=== PATIENT | female | born 1945 | race Caucasian/White ===

== ENCOUNTER 2016-10-20 13:50 | Emergency (ER) | payer OTHER ==
[~2016-10-20] VITALS: Ht 160 cm; Wt 72.7 kg
[~2016-10-20 13:50] MED LIST: AMLO2.5T PO; ATOR-24 PO; GLC/500 PO; GLIP2.5T11 PO; HYDR25TA4 PO; LOSA100T65 PO; TRIA0.1C20 TOP
[2016-10-20 13:55] VITALS: TEMP 37; Ht 160 cm; Wt 72.7 kg
--- NOTE | 2016-10-20 15:35 | EMERGENCY ROOM VISIT NOTE ---
History Report prepared by Jerald: Haris Hayden Under the Supervision of: Dr. Michael Lopez M.D. First contact with patient: 15:16 Chief Complaint: CHEST PAIN Stated Complaint: CHEST PAIN Nursing Triage Summary: Triage note: Pt reports left chest pain x 1 week. pt reports she was seen at dr cavanaugh office and sent to ed for further eval. History of Present Illness The patient is a 71 year old female who presents to the Emergency Room with complaints of constant left sided chest pain beginning three days prior to arrival. She currently rates her discomfort as a 4-5/10 in severity. The patient notes her pain will worsen with lifting a bin of clothes. She denies exertion or taking a deep breath making her pain worse. The patient denies anything that makes her discomfort better. She notes a history of having an ongoing left shoulder problem. The patient states she was sent by Dr. Lee's office for a cardiac work up. She denies having symptoms like this in the past. The patient denies known heart problems but states she has a history of hypertension. She denies shortness of breath, rash or didier on the chest, recent long travel, history of blood clots in her legs or lungs, and a family history of blood clots. 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 A total of 10 systems reviewed and were otherwise negative. Past Medical & Surgical Medical Problems: (1) HTN (hypertension) (2) Hypercholesteremia Family History Cancer Diabetes mellitus FH: heart disease Hypertension Social History Smoking Status: Never Smoker Marital Status: single Housing Status: lives with significant other Occupation Status: retired Current/Historical Medications Scheduled Amlodipine (Norvasc), 2.5 MG PO QPM Aspirin (Aspirin Ec), 81 MG PO QPM Atorvastatin (Lipitor), 40 MG PO QPM Calcium Carbonate-Vitamin D (Calcium + D3 600-200 mg-Unit), 1 TAB PO QPM Glipizide (Glipizide Er), 1 TAB PO DAILY Ozhcoktvpxu-Fvueikrzwmf-Ba Cho (Glucosamine Chondroitin &), 1 TAB PO QPM Hydrochlorothiazide (Hctz), 25 MG PO QPM Losartan Potassium (Cozaar), 100 MG PO QPM Metformin Hcl (Glucophage), 500 MG PO QAM Multiple Vitamins W/ Minerals (Preservision Areds), 1 CAP PO QPM Allergies Coded Allergies: Iodinated Diagnostic Agents (Verified Allergy, Severe, TIGHT THROAT, FELT HOT, 10/20/16) Penicillins (Verified Allergy, Severe, RASH, 10/20/16) Physical Exam Vital Signs Date Time Temp Pulse Resp B/P Pulse Ox O2 Delivery O2 Flow Rate FiO2 10/20/16 17:21 68 16 135/71 94 Room Air 10/20/16 16:24 70 10/20/16 16:09 70 20 155/80 92 Room Air 10/20/16 16:01 92 Room Air 10/20/16 13:55 37.0 79 18 162/82 94 Room Air Physical Exam GENERAL: Patient is in no acute distress. HEENT: No acute trauma, normocephalic atraumatic, mucous membranes moist, no nasal congestion, no scleral icterus. NECK: No stridor, no adenopathy, no meningismus, trachea is midline. LUNGS: Clear to auscultation bilaterally, no wheeze, no rhonchi, breath sounds equal. HEART: 2/6 systolic murmur with a regular rate and rhythm. CHEST: Nontender chest wall. ABDOMEN: Soft, nontender, bowel sounds positive, no hernias, no peritonitis. EXTREMITIES: No cyanosis or edema, full range of motion of all the joints without pain or difficulty, no signs for acute trauma. NEUROLOGIC: Oriented x 3, no acute motor or sensory deficits, no focal weakness. SKIN: No rash, no jaundice, no diaphoresis. Medical Decision & Procedures ER Provider Diagnostic Interpretation: X-ray results as stated below per interpretation by me and the radiologist: SINGLE VIEW CHEST CLINICAL HISTORY: Atypical chest pain. FINDINGS: An AP, portable, upright chest radiograph is compared to study dated 01/15/2016. The examination is degraded by portable technique and patient rotation. The cardiomediastinal silhouette is unremarkable. The lungs and pleural spaces are clear. No pneumothorax is seen. The skeletal structures are osteopenic. The bony thorax is grossly intact. Calcific tendinopathy is noted in the left shoulder. IMPRESSION: No active disease in the chest. Electronically signed by: Michael Meyer M.D. 10/20/2016 3:42 PM Dictated Date/Time: 10/20/2016 3:41 PM Laboratory Results 10/20/16 16:00 10/20/16 16:00 Test 10/20/16 16:00 10/20/16 16:12 Red Blood Count 4.49 M/uL (4.2-5.4) Mean Corpuscular Volume 89.1 fL (80-100) Mean Corpuscular Hemoglobin 30.3 pg (25-34) Mean Corpuscular Hemoglobin Concent 34.0 g/dl (32-36) RDW Standard Deviation 45.3 fL (36.4-46.3) RDW Coefficient of Variation 13.9 % (11.5-14.5) Mean Platelet Volume 10.1 fL (7.4-10.4) Prothrombin Time 10.9 SECONDS (9.0-12.0) Prothromb Time International Ratio 1.0 (0.9-1.1) Activated Partial Thromboplast Time 27.1 SECONDS (21.0-31.0) Partial Thromboplastin Ratio 1.0 Anion Gap 8.0 mmol/L (3-11) Est Creatinine Clear Calc Drug Dose 58.3 ml/min Estimated GFR () 78.8 Estimated GFR (Non- 68.0 BUN/Creatinine Ratio 19.9 (10-20) Calcium Level 9.5 mg/dl (8.5-10.1) Total Bilirubin 0.5 mg/dl (0.2-1) Aspartate Amino Transf (AST/SGOT) 14 U/L (15-37) Alanine Aminotransferase (ALT/SGPT) 34 U/L (12-78) Alkaline Phosphatase 75 U/L (45-117) Troponin I < 0.015 ng/ml (0-0.045) Total Protein 7.6 gm/dl (6.4-8.2) Albumin 4.4 gm/dl (3.4-5.0) Globulin 3.2 gm/dl (2.5-4.0) Albumin/Globulin Ratio 1.4 (0.9-2) Bedside D-Dimer 221 ng/mlFEU (0-450) Laboratory results reviewed by me. ECG Indication: chest pain Rate (beats per minute): 68 Rhythm: normal sinus Findings: no acute ischemic change, no ectopy, other (nonspecific T-wave changes diffusely) ED Course 1518: The patient was evaluated in room C8. A complete history and physical exam was performed. 1727: Reevaluated the patient. Discussed results and discharge instructions: She verbalized understanding and agreement. The patient is ready for discharge. Medical Decision The differential diagnoses include but are not limited to: musculoskeletal pain , aortic dissection, PE, pneumonia, pneumothorax, herpes zoster, anemia, ND. There is no leukocytosis or concerning anemia. No significant electrolyte abnormality, kidney failure or hepatitis. There is no coagulopathy. EKG shows a normal sinus rhythm, there is no acute ischemia. Cardiac enzyme testing 1 is not suggestive of acute cardiac injury. Chest x-ray shows no pneumonia, mediastinal widening or pneumothorax. D-dimer testing is negative. With a negative d-dimer and my low suspicion for PE, I will stop the workup for this diagnosis. The patient presents with some left sided chest pain. The pain is not exertional. The pain is likely musculoskeletal. Her workup here is benign, the patient is being reassured. She can return if worsening. She was told to be sure to watch for any shingles like rash. Impression Primary Impression: Left sided chest pain Scribe Attestation The scribe's documentation has been prepared under my direction and personally reviewed by me in its entirety. I confirm that the note above accurately reflects all work, treatment, procedures, and medical decision making performed by me. Departure Information Dispostion Home / Self-Care Referrals Didier Lee M.D. (PCP) Forms HOME CARE DOCUMENTATION FORM, IMPORTANT VISIT INFORMATION Patient Instructions A Signature Page, My [facility] [employer] Additional Instructions heat may help otc pain meds watch for a rash as we discussed return if worsening follow with tico white for a recheck all lab testing today was ok
[2016-10-20] MEDS ORDERED: CALC-388 PO (15:38)
[2016-10-20] MEDS ORDERED: GLUCTAB32 PO (15:38)
[2016-10-20] MEDS ORDERED: ASPI81TA28 PO (15:38)
[2016-10-20] MEDS ORDERED: MULTCAP33 PO (15:38)
--- NOTE | 2016-10-20 15:44 | DIAGNOSTIC IMAGING REPORT ---
SINGLE VIEW CHEST CLINICAL HISTORY: Atypical chest pain. FINDINGS: An AP, portable, upright chest radiograph is compared to study dated 01/15/2016. The examination is degraded by portable technique and patient rotation. The cardiomediastinal silhouette is unremarkable. The lungs and pleural spaces are clear. No pneumothorax is seen. The skeletal structures are osteopenic. The bony thorax is grossly intact. Calcific tendinopathy is noted in the left shoulder. IMPRESSION: No active disease in the chest. Electronically signed by: Michael Meyer M.D. 10/20/2016 3:42 PM Dictated Date/Time: 10/20/2016 3:41 PM
[2016-10-20 16:01] VITALS: O2SAT 92
[2016-10-20 16:24] LABS: MEAN CELL VOLUME 89.1 fL (80-100); MEAN CORPUSCULAR HEMOGLOBIN 30.3 pg (25-34); MEAN PLATELET VOLUME 10.1 fL (7.4-10.4); PLATELET COUNT 245 K/uL (130-400); RED BLOOD COUNT 4.49 M/uL (4.2-5.4); WHITE BLOOD COUNT 8.73 K/uL (4.8-10.8)
[2016-10-20 16:27] LABS: PROTHROMBIN TIME (PATIENT) 10.9 SECONDS (9.0-12.0)
[2016-10-20 16:34] LABS: ALT/SGPT 34 U/L (12-78); AST/SGOT 14 U/L (15-37); BLOOD UREA NITROGEN 17 mg/dl (7-18); BUN/CREATININE RATIO 19.9 (10-20); CALCIUM 9.5 mg/dl (8.5-10.1); CARBON DIOXIDE 30 mmol/L (21-32); CHLORIDE 103 mmol/L (98-107); CREATININE 0.87 mg/dl (0.60-1.20); GLUCOSE 128 mg/dl (70-99); POTASSIUM 3.9 mmol/L (3.5-5.1); SODIUM 141 mmol/L (136-145)
[2016-10-20 16:38] LABS: ALB/GLOB RATIO 1.4 (0.9-2); ALKALINE PHOSPHATASE 75 U/L (45-117)
[2016-10-20 17:21] VITALS: BP 135/71; PULSE 68; O2SAT 94
== END 2016-10-20 17:28 | disposition home or self-care (01) ==
LOC: C.EDB 13:51 → C.EDC 17:28
DX: R07.9 Chest pain, unspecified (principal); I10 Essential (primary) hypertension; E78.00 Pure hypercholesterolemia, unspecified; Z83.3 Family history of diabetes mellitus; Z82.49 Family history of ischemic heart disease and other diseases of the circulatory system; Z79.82 Long term (current) use of aspirin; Z79.899 Other long term (current) drug therapy

== ENCOUNTER 2017-01-05 00:33 | Emergency (ER) | payer OTHER ==
[~2017-01-05] VITALS: Ht 160 cm; Wt 74.9 kg
[~2017-01-05 00:33] MED LIST changes: +ASPI81TA28 PO; +CALC-388 PO; +GLUCTAB32 PO; +MULTCAP33 PO; -TRIA0.1C20 TOP
[2017-01-05 00:40] VITALS: TEMP 36.9; Ht 160 cm; Wt 74.9 kg
[2017-01-05] MEDS ORDERED: SODIUM CHLORIDE 0.9% 1000ML 1,000 ML IV STA (01:03)
[2017-01-05] MEDS ORDERED: KETOROLAC TROMETHAMINE 30 MG/ML VIAL IV STA (01:03)
[2017-01-05 01:28] LABS: HEMATOCRIT 39.8 % (37-47); MEAN CELL VOLUME 86.9 fL (80-100); MEAN CORPUSCULAR HEMOGLOBIN 29.9 pg (25-34); MEAN CORPUSCULAR HGB CONC 34.4 g/dl (32-36); MEAN PLATELET VOLUME 9.6 fL (7.4-10.4); PLATELET COUNT 262 K/uL (130-400); RED BLOOD COUNT 4.58 M/uL (4.2-5.4)
[2017-01-05 01:47] LABS: BUN/CREATININE RATIO 20.6 (10-20); CALCIUM 9.2 mg/dl (8.5-10.1); CREATININE 0.83 mg/dl (0.60-1.20); MAGNESIUM 2.1 mg/dl (1.8-2.4); POTASSIUM 3.6 mmol/L (3.5-5.1)
[2017-01-05 01:57] LABS: CKMB/CK RATIO 0.7 (0-3.0); THYROID STIMULATING HORMONE 3.07 uIu/ml (0.300-4.500)
[2017-01-05 02:17] LABS: BASO % 0.4 %; BASO ABS # 0.04 K/uL (0-0.2); COMPLETE YES; EOS % 2.8 %; HYPOSEGMENTED POLYS OCCASIONAL; IG% 0.3 %; MONO % 8.6 %; NEUT % 59.9 %
[2017-01-05 03:30] VITALS: BP 115/62; PULSE 74; O2SAT 94
--- NOTE | 2017-01-05 03:30 | EMERGENCY ROOM VISIT NOTE ---
History Report prepared by Annikaibnayan: Kris Gillespie Under the Supervision of: Dr. Gemma Stone M.D. First contact with patient: 00:45 Chief Complaint: FACIAL PAIN/INJURY Stated Complaint: PAIN RT SIDE OF JAW,BP UP SLIGHTLY 151/85 History of Present Illness The patient is a 71 year old female who presents to the Emergency Room with complaints of worsening right jaw pain beginning two days ago. Her pain is worsened with closing her jaw. She denies any neurologic symptoms, dental pain, known fevers, heart palpitations, or chest pain. The patient notes that she checked her blood pressure tonight and found it to be elevated. She describes her pain as a feeling of "pressure". She notes that she had an episode of lightheadedness yesterday, but is unsure if this is relevant to her symptoms. Source of History: patient Onset: two days ago Position: jaw (right) Quality: pressure Timing: worsening Modifying Factors (Worsening): other (closing her jaw) Associated Symptoms: No chest pain, No fevers Note: The patient denies any dental pain, heart palpitations, or neurologic symptoms. Review of Systems See HPI for pertinent positives & negatives. A total of 10 systems reviewed and were otherwise negative. Past Medical & Surgical Medical Problems: (1) HTN (hypertension) (2) Hypercholesteremia Family History Cancer Diabetes mellitus FH: heart disease Hypertension Social History Smoking Status: Never Smoker Marital Status: single Housing Status: lives with significant other Occupation Status: retired Current/Historical Medications Scheduled Amlodipine (Norvasc), 2.5 MG PO QPM Aspirin (Aspirin Ec), 81 MG PO QPM Atorvastatin (Lipitor), 40 MG PO QPM Calcium Carbonate-Vitamin D (Calcium + D3 600-200 mg-Unit), 1 TAB PO QPM Glipizide (Glipizide Er), 2.5 MG PO DAILY Ctkjzlzavsa-Ozhsvvdckku-Pm Cho (Glucosamine Chondroitin &), 1 TAB PO QPM Hydrochlorothiazide (Hctz), 25 MG PO QPM Losartan Potassium (Cozaar), 100 MG PO QPM Metformin Hcl (Glucophage), 500 MG PO QAM Multiple Vitamins W/ Minerals (Preservision Areds), 1 CAP PO QPM Allergies Coded Allergies: Iodinated Diagnostic Agents (Verified Allergy, Severe, TIGHT THROAT, FELT HOT, 01/05/17) Penicillins (Verified Allergy, Severe, RASH, 01/05/17) Physical Exam Vital Signs Date Time Temp Pulse Resp B/P Pulse Ox O2 Delivery O2 Flow Rate FiO2 01/05/17 03:30 74 21 115/62 94 Room Air 01/05/17 02:47 75 17 125/69 94 Room Air 01/05/17 01:24 72 01/05/17 00:40 36.9 74 20 170/81 93 Room Air Physical Exam Vital signs reviewed. General: Well-appearing female, in no significant distress. HEENT: No scleral icterus, PERRLA, neck supple. Atraumatic. Mild tenderness and swelling to the right side of the face along the parotid. No erythema. No fluctuance. No instability palpated to the TMJ or mandible. Teeth appear to be intact. Cardiovascular: Regular rate and rhythm, no extra sounds. Pulmonary: Clear to auscultation bilaterally, normal work of breathing. Abdomen: Soft, nontender, nondistended, positive bowel sounds. Musculoskeletal: Atraumatic, no peripheral edema. Neurologic: Patient awake alert and oriented x 3, full strength in all 4 extremities. Cranial nerves 2 through 12 grossly intact. Skin: Warm, dry, no rash Medical Decision & Procedures ER Provider Diagnostic Interpretation: CT results per statrad and my review. CT FACIAL: Parotid glands appear symmetric. No fluid collection. No mass lesion. Right sphenoid sinus mucous retention cyst versus polyp. Streak artifact from dental hardware obscures the level of the oral cavity. Laboratory Results 01/05/17 01:20 Red Blood Count 4.58, Mean Corpuscular Volume 86.9, Mean Corpuscular Hemoglobin 29.9, Mean Corpuscular Hemoglobin Concent 34.4, Mean Platelet Volume 9.6, Neutrophils (%) (Auto) 59.9, Lymphocytes (%) (Auto) 28.0, Monocytes (%) (Auto) 8.6, Eosinophils (%) (Auto) 2.8, Basophils (%) (Auto) 0.4, Neutrophils # (Auto) 6.41, Lymphocytes # (Auto) 3.00, Monocytes # (Auto) 0.92, Eosinophils # (Auto) 0.30, Basophils # (Auto) 0.04 01/05/17 01:20 Test 01/05/17 01:20 01/05/17 01:25 White Blood Count 10.70 K/uL (4.8-10.8) Red Blood Count 4.58 M/uL (4.2-5.4) Hemoglobin 13.7 g/dL (12.0-16.0) Hematocrit 39.8 % (37-47) Mean Corpuscular Volume 86.9 fL (80-100) Mean Corpuscular Hemoglobin 29.9 pg (25-34) Mean Corpuscular Hemoglobin Concent 34.4 g/dl (32-36) Platelet Count 262 K/uL (130-400) Mean Platelet Volume 9.6 fL (7.4-10.4) Neutrophils (%) (Auto) 59.9 % Lymphocytes (%) (Auto) 28.0 % Monocytes (%) (Auto) 8.6 % Eosinophils (%) (Auto) 2.8 % Basophils (%) (Auto) 0.4 % Neutrophils # (Auto) 6.41 K/uL (1.4-6.5) Lymphocytes # (Auto) 3.00 K/uL (1.2-3.4) Monocytes # (Auto) 0.92 K/uL (0.11-0.59) Eosinophils # (Auto) 0.30 K/uL (0-0.5) Basophils # (Auto) 0.04 K/uL (0-0.2) RDW Standard Deviation 43.9 fL (36.4-46.3) RDW Coefficient of Variation 13.8 % (11.5-14.5) Immature Granulocyte % (Auto) 0.3 % Immature Granulocyte # (Auto) 0.03 K/uL (0.00-0.02) Hyposegmented Neutrophils OCCASIONAL Anion Gap 9.0 mmol/L (3-11) Est Creatinine Clear Calc Drug Dose 62.0 ml/min Estimated GFR () 83.4 Estimated GFR (Non- 71.9 BUN/Creatinine Ratio 20.6 (10-20) Calcium Level 9.2 mg/dl (8.5-10.1) Magnesium Level 2.1 mg/dl (1.8-2.4) Total Bilirubin 0.3 mg/dl (0.2-1) Direct Bilirubin 0.1 mg/dl (0-0.2) Aspartate Amino Transf (AST/SGOT) 16 U/L (15-37) Alanine Aminotransferase (ALT/SGPT) 37 U/L (12-78) Alkaline Phosphatase 76 U/L (45-117) Total Creatine Kinase 125 U/L (26-192) Creatine Kinase MB 0.9 ng/ml (0.5-3.6) Creatine Kinase MB Ratio 0.7 (0-3.0) Total Protein 7.6 gm/dl (6.4-8.2) Albumin 4.2 gm/dl (3.4-5.0) Thyroid Stimulating Hormone (TSH) 3.070 uIu/ml (0.300-4.500) Bedside Troponin I 0.000 ng/ml (0-0.045) Laboratory results per my review. Medications Administered Medications (Trade) Dose Ordered Sig/Colleen Route Start Time Stop Time Status Last Admin Dose Admin Ketorolac Tromethamine 30 mg 30 mg NOW STAT IV 01/05/17 01:03 01/05/17 01:06 DC 01/05/17 01:29 30 MG Sodium Chloride (Nss 1000ml) 1,000 ml @ 125 mls/hr Q8H STAT IV 01/05/17 01:03 01/05/17 04:19 DC 01/05/17 01:29 125 MLS/HR ECG Indication: other (jaw pain) Rate (beats per minute): 70 Rhythm: normal sinus Findings: Q waves (Inferior), other (Flattened T-waves. Low voltage QRS.) ED Course 0101: Past medical records reviewed. The patient was evaluated in room B8. A complete history and physical examination was performed. 0103: Ordered Sodium Chloride 1000 ml @ 125 mls/hr IV, Toradol Inj 30 mg IV. 0330: Upon reevaluation, the patient appeared to have improvement of her symptoms. I discussed findings with her. The patient verbalized agreement of the treatment plan. She was discharged home. Medical Decision The patient is a 71 year old female who presents to the ED with complaints of right jaw pain. Differentials include parotitis, dental infection, trigeminal neuralgia, TMJ pain, as well as other etiologies were considered. This patient was evaluated and appeared to be in no significant distress. Physical examination is fairly unrevealing. Patient has tenderness over the right parotid. She was given 30 mg of IV Toradol. Laboratory work was assessed and is fairly unrevealing. CT scan of the face was performed without IV contrast due to the patient's allergy. There is no significant acute abnormality. The patient was informed of the findings. She will follow-up with her physician for reevaluation. Patient was asked to use ibuprofen 600 mg every 6 hours as needed for pain with food. She will use [place] as needed for more severe pain. She'll follow-up with her dentist and return to the ER for worsening of symptoms or any medical concerns. Impression Primary Impression: Right sided facial pain Scribe Attestation The scribe's documentation has been prepared under my direction and personally reviewed by me in its entirety. I confirm that the note above accurately reflects all work, treatment, procedures, and medical decision making performed by me. Departure Information Dispostion Home / Self-Care Referrals Piyush Lee M.D. (PCP) Forms HOME CARE DOCUMENTATION FORM, IMPORTANT VISIT INFORMATION Patient Instructions My [facility] Additional Instructions Diagnosis: Right-sided facial pain Ibuprofen 600 mg every 6 hours as needed for pain with food. Ice intermittently for the next 24-48 hours. Follow-up with your physician this week for reevaluation. Return to the ER for worsening of symptoms or any medical concerns.
--- NOTE | 2017-01-05 07:02 | DIAGNOSTIC IMAGING REPORT ---
MAXILLOFACIAL CT WITHOUT CONTRAST CLINICAL HISTORY: Right parotid pain and swelling. Right jaw pain. COMPARISON STUDY: None. TECHNIQUE: A maxillofacial CT was performed without IV contrast. Coronal and sagittal reformats were viewed. No intravenous contrast was administered due to IV dye allergy. FINDINGS: The parotid glands are unremarkable on this unenhanced exam. There is no periparotid infiltration. No parotid mass is identified. No fluid collection is identified within the face. Orbits are unremarkable. Visualized portions of the intracranial contents are unremarkable on this unenhanced exam. Mastoid air cells are clear. There is no fluid within the middle ears. There is mild polypoid mucosal thickening of the right sphenoid sinus. Visualized skeletal structures are unremarkable. IMPRESSION: 1. Normal appearance of the parotid glands on unenhanced exam. No periparotid infiltration. 2. No fluid collection to suggest abscess. 3. No sialolith identified although sensitivity diminished by streak artifact from dental hardware. Electronically signed by: Nato Vega M.D. 01/05/2017 7:00 AM Dictated Date/Time: 01/05/2017 6:56 AM
== END 2017-01-05 03:38 | disposition home or self-care (01) ==
LOC: C.EDB 00:34
DX: R68.84 Jaw pain (principal); I10 Essential (primary) hypertension; E78.00 Pure hypercholesterolemia, unspecified; Z83.3 Family history of diabetes mellitus; Z82.49 Family history of ischemic heart disease and other diseases of the circulatory system; Z79.82 Long term (current) use of aspirin; Z79.899 Other long term (current) drug therapy

== ENCOUNTER → 2018-05-10 | Day surgery (SDC) | payer OTHER ==
[2018-04-19 10:45] VITALS: Ht 160 cm; Wt 71.4 kg
[~2018-05-10] VITALS: Ht 160 cm; Wt 71.4 kg
[~2018-05-10] MED LIST changes: +500ML BSS 0.3ML EPI 1:1000PF IRRIG ONE; +ACETAMINOPHEN 325 MG TAB PO PRN; +AMVISC PLUS 0.8ML SYRINGE INT OCU ONE; +ATROPINE SULFATE 0.1 MG/ML 5ML SYR IV PRN; +BSS FLUSH ONE; +ENDOCOAT 0.85ML SYRINGE INT OCU ONE; +EpHEDrine SULFATE INJ 50 MG/ML AMP IV PRN; +EpINEphrine INJ 1MG/ML AMP 1 MG/ML AMP ONE; -GLIP2.5T11 PO; +LACTATED RINGER'S 1000ML 500 ML IV SCH; +LIDOCAINE 4% OP SOLN DROP CHARGE ONE; +LIDOCAINE 4% OP SOLN DROP CHARGE OPL SCH; +LIDOCAINE HCL 1% MPF 2 ML VIAL ONE; +MIDAZOLAM HCL 1 MG/ML 2ML VIAL ONE; +MIX: 4ML BSS 1ML EPI 1:1000 PF TOP ONE; +MOXIFLOXACIN OPH SOLN PER DROP CHARGE ONE; +POVIDONE-IODINE OP SOLN 30 ML BTL ONE; +PROPARACAINE 0.5% OP SOLN PER DROP CHARGE OPL SCH; +SITA100T3 PO; +TOBRAMYCIN/DEXAMETHASONE OPH OINT PER APPLN CHARGE ONE
[2018-05-10] MEDS: PHENYLEPHRINE HCL 2.5% OP SOLN PER DROP CHARGE OPL SCH ×3 (09:18→09:30)
[2018-05-10] MEDS: TROPICAMIDE 1% OP SOLN PER DROP CHARGE OPL SCH ×3 (09:19→09:31)
[2018-05-10] MEDS: CYCLOPENTOLATE HCL 1% OP SOLN PER DROP CHARGE OPL SCH ×3 (09:20→09:32)
[2018-05-10] MEDS: MOXIFLOXACIN OPH SOLN PER DROP CHARGE OPL SCH ×3 (09:21→09:34)
--- NOTE | 2018-05-10 09:21 | History & Physical Bridge - SC ---
H&P Re-Evaluation Bridge Note: I have examined the patient, reviewed the History & Physical and in the interval since the performance of the History & Physical I have noted the following changes of clinical significance: No changes noted
--- NOTE | 2018-05-10 10:25 | [facility] Post Operative Brief Note ---
Immediate Operative Summary Operative Date May 10, 2018. Pre-Operative Diagnosis Left Eye Cataract Post-Operative Diagnosis Same Procedure(s) Performed Left Cataract Phacoemulsification With Intraocular Lens Implant Surgeon Dr. Aaron Beltran Curber Surgeon(s) None Estimated Blood Loss 0 Findings Consistent with Post-Op Diagnosis Specimens None Anesthesia Type MAC Complication(s) none Disposition Accompanied Pt To Recover: no Disposition:
--- NOTE | 2018-05-10 10:26 | [facility] Operative Report ---
Operative Report Date of Service May 10, 2018. Operative Report DATE OF OPERATION: 05/10/18 PREOPERATIVE DIAGNOSIS: Senile nuclear cataract, left eye POSTOPERATIVE DIAGNOSIS: Senile nuclear cataract, left eye PROCEDURE PERFORMED: Phacoemulsification with intraocular lens implantation, left eye SURGEON: Dr. Yung Beltran ANESTHESIA: Topical with 1% intracameral lidocaine and monitored anesthesia care COMPLICATIONS: None DESCRIPTION OF PROCEDURE: After positively identifying the patient both verbally and by wristband in the preoperative area, the left eye was marked as the operative eye. The patient was then brought back to the operating room by the anesthesia and nursing staff where they were given a drop of Lidocaine and betadine into the operative eye. They were then sterilely prepped and draped in the standard fashion typical for ophthalmic surgery. Steri-strips were placed along the upper eyelids to keep the lashes back, and a lid speculum was placed into the operative eye. At this point, a documented time out was performed with members of the ophthalmology, nursing, and anesthesia staffs all agreeing upon the correct patient, correct location for surgery, correct procedure, and correct type and power of intraocular lens to be implanted. The microscope was then swung into position. First, a paracentesis wound was made using a sideport blade. Then, in sequence, 1% preservative-free lidocaine followed by Endocoat viscoelastic was injected into the anterior chamber. Next , the main incision was made with a keratome blade in triplanar fashion. A sharp cystotome was introduced into the eye and used to create a tear in the anterior capsule, which was directed into a continuous curvilinear capsulorrhexis using Utrata forceps. Hydrodissection was then performed with BSS on a flat-tip cannula. Next, the phacoemulsification handpiece was introduced into the eye and used to remove the nucleus in a [id number] fashion. This was done without complication and then the irrigation-aspiration handpiece was introduced into the eye and used to remove all remaining cortical and epinuclear material. Amvisc was then injected into the anterior chamber as well as into the capsular bag and using the lens injector system, an MX60 24.5 D lens, serial number [id number], and expiration date 12/2020 was injected into the capsular bag and rotated into the correct position. Next, the irrigation- aspiration handpiece was used to remove all remaining Amvisc. BSS was used to hydrate the main wound, and then BSS was injected into the paracentesis site to reach physiologic pressure and then the main wound was checked and found to be watertight. The patient was given drops of Vigamox and Tobradex ointment into the operative eye, and then the surrounding area was cleaned and dried. A clear plastic shield was placed over the eye and the patient was then sat up and taken from the operating room by the anesthesia staff having tolerated the procedure well and suffering no complications. DISPOSITION: The patient was returned to the recovery room in stable condition. I attest to the content of the Intraoperative Record and any orders documented therein. Any exceptions are noted below.
--- NOTE | 2018-05-10 10:27 | Discharge Instructions-[facility]Ctr ---
Discharge Instructions Date of Service May 10, 2018. Visit Reason for Visit: Cataract Left Eye Discharge Discharge Diagnosis / Problem: left cataract Discharge Goals Goal(s): Decrease discomfort, Improve function Activity Recommendations Activity Limitations: as noted below Anesthesia . Post Anesthesia Instructions: If you have had General Anesthesia or IV Sedation: * Do not drive today. * Resume driving when surgeon permits. * Do not make important decisions or sign legal documents today. * Call surgeon for: 1. Temperature elevations greater than 101 degrees F. 2. Uncontrollable pain. 3. Excessive bleeding. 4. Persistent nausea and vomiting. 5. Medication intolerance (nausea, vomiting or rash). * For nausea and vomiting use only clear liquids such as: tea, soda, bouillon until nausea subsides, then gradually increase diet as tolerated. * If you have any concerns or questions, call your surgeon's office. If physician is unavailable and it is an emergency, call 911 or go to the nearest emergency room. . Instructions / Follow-Up Instructions / Follow-Up ACTIVITY RECOMMENDATIONS: * Light activities. * You may walk outside, read, watch television. * You may notice redness on the white part of the eye and some blurry vision - this is normal. MEDICATIONS: Resume previous medications unless instructed otherwise by your surgeon. Start all eye drops at 12:30 pm today: * Eye drops (today): Prednisone - one drop in operative eye every 2 hours while awake Ofloxacin - one drop in operative eye every 2 hours while awake Prolensa - one drop in operative eye daily SPECIAL CARE INSTRUCTIONS: * Tape plastic shield over eye to sleep at night. Call your doctor at with any concerns or problems. FOLLOW UP VISIT: Follow-up with Dr Beltran at [facility] as scheduled. Diet Recommendations Home Diet: no limitations Procedures Procedures Performed: Left Cataract Phacoemulsification With Intraocular Lens Implant Pending Studies Studies pending at discharge: no Medical Emergencies . Who to Call and When: Medical Emergencies: If at any time you feel your situation is an emergency, please call 911 immediately. . Non-Emergent Contact Non-Emergency issues call your: Surgeon . . "Provider Documentation" section prepared by Yung Beltran. .
[2018-05-10 10:28] VITALS: TEMP 36.2
[2018-05-10 10:52] VITALS: BP 144/82; PULSE 62; O2SAT 97
--- NOTE | 2018-05-10 10:53 | Anesthesia Progress Nt - [facility] ---
Anesthesia Post Op Note Date & Time May 10, 2018 at 10:53 Vital Signs Pain Intensity: 0 Vital Signs Past 12 Hours Date Time Temp Pulse Resp B/P (MAP) Pulse Ox O2 Delivery O2 Flow Rate FiO2 05/10/18 10:28 36.2 87 121/70 (87) 94 Room Air 05/10/18 09:00 36.4 68 16 159/79 (105) 96 Room Air Notes Mental Status: alert / awake / arousable, participated in evaluation Pt Amnestic to Procedure: Yes Nausea / Vomiting: adequately controlled Pain: adequately controlled Airway Patency, RR, SpO2: stable & adequate BP & HR: stable & adequate Hydration State: stable & adequate Anesthetic Complications: no major complications apparent
== END | disposition home or self-care (01) ==
LOC: X.SURG 08:48
PROVIDERS: ATTEND Ophthalmology
DX: E11.36 Type 2 diabetes mellitus with diabetic cataract (principal); H25.12 Age-related nuclear cataract, left eye; I10 Essential (primary) hypertension; E78.00 Pure hypercholesterolemia, unspecified; M19.90 Unspecified osteoarthritis, unspecified site; Z88.8 Allergy status to other drugs, medicaments and biological substances; Z88.0 Allergy status to penicillin; Z87.891 Personal history of nicotine dependence

== ENCOUNTER 2019-04-12 09:41 | Observation (INO) ==
[2019-04-12] MEDS ORDERED: NITROGLYCERIN 2% OINTMENT 30GM TUBE EXT STA (10:12)
[2019-04-12 10:40] LABS: Basophils # (auto) 0.03 K/uL (0-0.2); Basophils % (auto) 0.4 %; Eosinophils # (auto) 0.16 K/uL (0-0.5); Eosinophils % (auto) 2.3 %; Hematocrit (blood only) 39.5 % (37-47); Hemoglobin 13.4 g/dL (12.0-16.0); Immature Granulocytes # (auto) 0.01 K/uL (0.00-0.02); Immature Granulocytes % (auto) 0.1 %; Lymphocytes # (auto) 2.45 K/uL (1.2-3.4); Lymphocytes % (auto) 34.7 %; Mean Corpuscular Hgb Conc 33.9 g/dL (32-36); Mean Corpuscular Volume 89.4 fL (80-100); Monocytes # (auto) 0.42 K/uL (0.11-0.59); Monocytes % (auto) 5.9 %; Neutrophils % (auto) 56.6 %; Platelet Count 251 K/uL (130-400); RDW Coefficient of Variation 13.4 % (11.5-14.5); RDW Standard Deviation 44.2 fL (36.4-46.3); Red Blood Count 4.42 M/uL (4.2-5.4); White Blood Count 7.07 K/uL (4.8-10.8)
--- NOTE | 2019-04-12 10:48 | XRay Report ---
XR chest 1V portable HISTORY: 73 years-old Female Chest Pain acute atypical chest pain COMPARISON: Chest radiograph 10/20/2016 TECHNIQUE: Portable AP view of the chest FINDINGS: Cardiomediastinal and hilar silhouettes are unchanged. No pneumothorax, pleural effusion, focal airsp harsha consolidation or overt pulmonary edema. Bones of the chest appear grossly intact. IMPRESSION: No acute process. The above report was generated using voice recognition software. It may contain grammatical, syntax o r spelling errors. Electronically signed by: Agustin Blevins M.D. 04/12/2019 10:47 AM
[2019-04-12 10:59] LABS: Albumin Level 4.2 gm/dl (3.4-5.0); BUN Creatinine Ratio 22.2 (10-20); Calcium 9.2 mg/dl (8.5-10.1); Est GFR (African American) 84.7; Est GFR (Non-African American) 73.1
[2019-04-12 11:03] LABS: Albumin Globulin Ratio 1.3 (0.9-2); Bilirubin,Total 0.5 mg/dl (0.2-1); Globulin 3.3 gm/dl (2.5-4.0); Total Protein 7.5 gm/dl (6.4-8.2)
--- NOTE | 2019-04-12 11:38 | History & Physical Report ---
Date of Service April 12, 2019 Assessment & Plan (1) Left-sided chest pain: Chest Pain: R/O ACS Risk factors: H/O HTN, HLP, Formaer Tobacco use disorder, DM II, +Family history Initial troponin:Negative EKG shows:No acute sings of Ischemia CXR: Unremarkable Trend serial cardiac enzymes, repeat EKG, fasting lipid panel in AM, resting ECHO Continue Aspirin, statins Oxygen PRN Will get Stress test in AM NPO after midnight Consider Cardiology consult if needed DM Type II: Poorly controlled Will hold oral diabetic meds Last A1c: 7.5 on January 11, 2019 ISS, Accu checks, Diabetic diet HTN: Stable Continue home meds HLP: Continue Statins Former Smoker As per records DVT Px: SCDs Code Status: Full Code Disposition: Expect to discharge home when stable History of Present Illness Chief Complaint: Chest Pain Primary Care Provider: Piyush Lee MD Patient is a 73-year-old female with history of diabetes mellitus, hypertension, dyslipidemia, former smoker and other problems presents with history of chest pain associated with shortness of breath and dizziness. She states " I feel different". she noticed having retrosternal chest pain, 2/10 intensity, describes as heaviness when she was mopping the floor yesterday. Chest pain lasted for about 30 minutes, is nonradiating, associated with shortness of tameka th and dizziness. She states the chest pain improves with rest and denies any worsening of chest pain with exertion. She admits to drinking 5 glasses of wine yesterday night which she states is not usual for her. 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 Nitroglycerin given in ED slightly decreased the chest pain, currently has 1/10 intensity. She states having last stress test 10 years ago in [place] which was negative. She reports that her brother of heart attack at the age of 39 years. She has intermittent GERD and uses Rolaids which improves her symptoms but currently states the chest heaviness is not related to acid reflux. Denies any history of palpitations, orthopnea, PND, pedal edema, diaphoresis, cough, wheezing, fever, chills, headache, weakness, nausea, vomiting, abdominal pain, diarrhea, dysuria, recent change in medications. Allergies Allergy/AdvReac Type Severity Reaction Status Date / Time Iodinated Contrast- Oral and Allergy Severe TIGHT Verified 04/12/19 10:13 IV Dye THROAT, FELT HOT Penicillins Allergy Severe RASH Verified 04/12/19 10:13 Home Medications Home Medications Medication Instructions Recorded Confirmed Type amlodipine 2.5 mg PO QAM 04/12/19 04/12/19 History aspirin 81 mg PO 04/12/19 04/12/19 History atorvastatin 80 mg PO 04/12/19 04/12/19 History calcium carbonate-vitamin D3 1 cap PO 04/12/19 04/12/19 History [Calcium 600 + D(3)] glucos sul [id number]-C-Mn 1 cap PO 04/12/19 04/12/19 History [Glucosamine Chondroitin] hydrochlorothiazide 25 mg PO QA 04/12/19 04/12/19 History losartan 100 mg PO 04/12/19 04/12/19 History metformin 500 mg PO QAM 04/12/19 04/12/19 History sitagliptin [Januvia] 100 mg PO 04/12/19 04/12/19 History vitamins A,C,H-vlef-jywtml 1 cap PO 04/12/19 04/12/19 History [PreserVision AREDS] Past Med/Surg History Medical History HTN (hypertension) Hypercholesteremia Hypertension (Acute) H/O: hysterectomy Surgical History No pertinent past surgical history Hx of appendectomy Family History Brother , Age 39 Myocardial infarction Father Cancer Mother Ovarian cancer Other No pertinent family history Social History Preferred Language: Dive[place] Communication Ability: Effective Visual Impairment: No Limitations Hearing Ability: Normal marital status: marital status details: Feels Safe at Home: Yes Smoking Status: Former smoker Hx Alcohol Use: Yes Review of Systems Review of Systems: All systems reviewed & are unremarkable except as noted in HPI & below Physical Exam Physical Exam: Physical Exam: Vitals signs as noted above General Appearance:Moderately built and nourished, no apparent distress Head: normocephalic, Atraumatic Eyes: normal inspection, EOMI Neck: supple, Trachea midline Respiratory/Chest: Normal breath sounds, CTAe Cardiovascular: S1, S2, No murmur Abdomen/GI:Soft, Non tender, Bowel sounds present Extremities/Musculoskelatal:normal inspection, no edema Neurologic/Psych:AAOX3, grossly no focal neurological deficits Skin: normal color, warm Results & Data Vital Signs (Past 12 Hours) Vital Signs Temp Pulse Pulse Resp BP BP Pulse Ox 04/12/19 10:26 71 72 16 151/75 H 97 04/12/19 09:48 36.7 C 77 20 169/79 H 98 Laboratory Results Short CBC 04/12/19 Range/Units 10:24 WBC 7.07 (4.8-10.8) K/uL Hgb 13.4 (12.0-16.0) g/dL Hct 39.5 (37-47) % Plt Count 251 (130-400) K/uL BMP 04/12/19 10:24 Sodium 138 Potassium 4.0 Chloride 102 Carbon Dioxide 29 BUN 18 Creatinine 0.81 Glucose 135 H Calcium 9.2 Liver Function 04/12/19 Range/Units 10:24 Total Bilirubin 0.5 (0.2-1) mg/dl AST 18 (15-37) U/L ALT 32 (12-78) U/L Alkaline Phosphatase 65 (45-117) U/L Albumin 4.2 (3.4-5.0) gm/dl Diagnostic Findings CXR: No acute process. ECG Additional Comments: EKG: Rhythm, low voltage QRS, QTc 454
[2019-04-12] MEDS ORDERED: ASPIRIN 81 MG CHEW PO STA (12:06)
[2019-04-12] MEDS ORDERED: DEXTROSE 50% 50 ML SYRINGE IV PRN (13:42)
[2019-04-12] MEDS ORDERED: CARBOHYDRATES FOR HYPOGLYCEMIA PO PRN (13:42)
[2019-04-12] MEDS ORDERED: ACETAMINOPHEN 325 MG TAB PO PRN (13:42)
[2019-04-12] MEDS ORDERED: NITROGLYCERIN SL 0.4 MG/TAB TAB SL PRN (13:42)
[2019-04-12] MEDS ORDERED: POLYETHYLENE (MIRALAX) 17 GM PACK PO PRN (13:42)
[2019-04-12] MEDS ORDERED: GLUCOSE 40% GEL 15 GM TUBE PO PRN (13:42)
[2019-04-12] MEDS ORDERED: ONDANSETRON INJ 2 MG/ML 2 ML VIAL IV PRN (13:42)
[2019-04-12] MEDS ORDERED: GLUCAGON FOR INJ 1 MG VIAL SQ PRN (13:42)
[2019-04-12] MEDS ORDERED: GLUCOSE 10 TABS/TUBE PO PRN (13:42)
--- NOTE | 2019-04-12 15:35 | Emergency Department Note ---
Entered by Gi Stephens acting as a scribe for History of Present Illness General Chief complaint: Chest Pain Stated complaint: SOB,ANXIETY, Source: patient Mode of arrival: ambulatory Limitations: no limitations History of Present Illness Onset (ago): day(s) (yesterday at 1130) 1 Location: chest Radiation: non-radiation Pain Consistency: + intermittent Maximum Pain Intensity: 2 Current Pain Intensity: 3 Quality: + other (chest discomfort, heaviness. ) Associated symptoms: + shortness of breath and + other (The patient denies leg edema, leg pain, and abdominal pain. ); no fever/chills (The patient denies fever. ) and no nausea/vomiting (The patient denies vomiting. ) The patient is a 73 year old female with a history of hypertension, hypercholesterolemia, and right shoulder injury who presents to the ED with complaints of intermittent chest discomfort that onset yesterday at 1130. She states that the pain onset while she was vacuuming and mopping. The patient states that the pain was not related to exertion. She does not remember if food exacerbated or alleviated her pain. The patient states that her chest discomfort returned today. She describes the discomfort as left sided heaviness. The patient denies pain radiation. She rates her current pain as a 3/10 in se verity. The patient complains of shortness of breath. The patient denies leg edema, leg pain, abdominal pain, fever, and vomiting. She notes that her brother from a heart attack at 39. The patient states that she had a stress test completed 10 years ago. She denies skipping any medications, using hormone replacements, and recent long trips. Home Medications Home Medications Medication Instructions Recorded Confirmed Type amlodipine 2.5 mg PO [facility] 04/12/19 04/12/19 History aspirin 81 mg PO 04/12/19 04/12/19 History atorvastatin 80 mg PO 04/12/19 04/12/19 History calcium carbonate-vitamin D3 1 cap PO 04/12/19 04/12/19 History [Calcium 600 + D(3)] glucos sul [id number]-[id number]-C-Mn 1 cap PO 04/12/19 04/12/19 History [Glucosamine Chondroitin] hydrochlorothiazide 25 mg PO QA 04/12/19 04/12/19 History losartan 100 mg PO 04/12/19 04/12/19 History metformin 500 mg PO QAM 04/12/19 04/12/19 History sitagliptin [Januvia] 100 mg PO HS 04/12/19 04/12/19 History vitamins A,C,B-nubo-kgzlkr 1 cap PO HS 04/12/19 04/12/19 History [PreserVision AREDS] Allergies Allergy/AdvReac Type Severity Reaction Status Date / Time Iodinated Contrast- Oral and Allergy Severe TIGHT Verified 04/12/19 10:13 IV Dye THROAT, FELT HOT Penicillins Allergy Severe RASH Verified 04/12/19 10:13 Past Med/Surg History Medical History HTN (hypertension) Hypercholesteremia Hypertension (Acute) Diabetes H/O: hysterectomy Surgical History No pertinent past surgical history Hx of appendectomy Family History Brother , Age 39 Myocardial infarction Father Cancer Mother Ovarian cancer Other No pertinent family history Social History Preferred Language: [place] Communication Ability: Effective Visual Impairment: No Limitations Hearing Ability: Normal Beliefs That Will Affect Care: None marital status: marital status details: Current Living Situation: Spouse Other Information That Helps Us Care for You: No Feels Safe at Home: Yes Safety Concerns: Feels Safe At This Time Smoking Status: Former smoker Hx Alcohol Use: Yes Alcohol type: wine Hx Substance Use: No Review of Systems See HPI for pertinent positives & negatives. and A total of 10 systems reviewed and were otherwise negative Physical Exam Vital Signs Vital Signs - 24 hr 04/12/19 09:48 04/12/19 10:26 04/12/19 10:28 Temperature 36.7 C Temperature Source Oral Sepsis Recent Fever Within 48 Hours No Sepsis Action Taken by Nursing No Action Required Pulse Rate 77 74 74 Pulse Rate [Apical] 72 Pulse Rate from SpO2 Sensor 72 75 Pulse Rhythm Regular Respiratory Rate 20 12 14 Respiratory Effort / Characteristics Non-Labored Spontaneous Respiratory Depth Normal Blood Pressure 169/79 H 151/75 H Blood Pressure [Left Arm] 151/75 H Blood Pressure Mean 109 100 Blood Pressure Mean [Left Arm] 100 Blood Pressure Position Sitting Pulse Oximetry 98 97 96 Oxygen Delivery Method Room Air Room Air 04/12/19 10:30 04/12/19 11:00 04/12/19 11:30 Temperature Temperature Source Sepsis Recent Fever Within 48 Hours Sepsis Action Taken by Nursing Pulse Rate 71 71 66 Pulse Rate [Apical] Pulse Rate from SpO2 Sensor 69 71 65 Pulse Rhythm Respiratory Rate 24 16 16 Respiratory Effort / Characteristics Respiratory Depth Blood Pressure Blood Pressure [Left Arm] Blood Pressure Mean Blood Pressure Mean [Left Arm] Blood Pressure Position Pulse Oximetry 97 94 93 Oxygen Delivery Method 04/12/19 11:45 04/12/19 12:00 04/12/19 12:01 Temperature Temperature Source Sepsis Recent Fever Within 48 Hours Sepsis Action Taken by Nursing Pulse Rate 72 72 64 Pulse Rate [Apical] Pulse Rate from SpO2 Sensor 71 72 65 Pulse Rhythm Respiratory Rate 16 20 23 Respiratory Effort / Characteristics Respiratory Depth Blood Pressure 132/65 130/77 Blood Pressure [Left Arm] Blood Pressure Mean 87 94 Blood Pressure Mean [Left Arm] Blood Pressure Position Pulse Oximetry 93 97 96 Oxygen Delivery Method Constitutional: Vital signs reviewed. Eyes: Pupils are equal round reactive to light. Conjunctiva are noninjected. ENT: Pharynx is clear without erythema or exudate. Mucous membranes are moist. Neck supple without meningeal signs. Respiratory: Clear to auscultation bilaterally. Breath sounds are equal bilaterally. Cardiovascular: Regular rate and rhythm. No rubs or gallops. GI: Soft, nondistended and nontender. Bowel sounds are present. Musculoskeletal: No peripheral edema. No lower extremity tenderness. Integumentary: No cyanosis. Neurological: The patient is awake and alert. No focal deficits. Psychiatric: Normal affect. Course 1005: Past medical records reviewed. The patient was evaluated in room B03B. A complete history and physical examination was performed. 1057: The patient states that her chest discomfort is completely resolved. I discussed the test results with her. I recommended hospitalization, which she is agreeable to. 1135: I reviewed the patient's case with Dr. Mega Pappas. He will evaluate the patient for further management. Consultations Consultation #1: [id number]: I reviewed the patient's case with Dr. Mega Pappas. He will evaluate the patient for further management. Time: 11:35 Administered Medications Discontinued Medications Aspirin (Aspirin Chew) 324 mg PO NOW STA Stop: 04/12/19 12:07 Last Admin: 04/12/19 12:20 Dose: 324 mg Documented by: [id number] Nitroglycerin (Nitro-Bid 2%) 0.5 inch EXT NOW STA Stop: 04/12/19 10:13 Last Admin: 04/12/19 10:25 Dose: 0.5 inch Documented by: [id number] Medical Decision Making Differential Diagnosis Differential diagnoses: Unstable angina, IL, pleurisy, GERD, anxiety. Medical Records Attestation: I reviewed the patient's medical records. I did perform a limited focused review of portions of the patient's old chart on the electronic medical record. The patient has had no recent pertinent visits to this hospital. Home Medications Current Medication List: was personally reviewed by me Laboratory Data Attestation: I reviewed the patient's lab results. Result diagrams: 04/12/19 10:24 04/12/19 10:24 Lab Results 04/12/19 04/12/19 04/12/19 Range/Units 10:24 10:24 10:37 WBC 7.07 (4.8-10.8) K/uL RBC 4.42 (4.2-5.4) M/uL Hgb 13.4 (12.0-16.0) g/dL Hct 39.5 (37-47) % MCV 89.4 (80-100) fL MCH 30.3 (25-34) pg MCHC 33.9 (32-36) g/dL RDW Std Deviation 44.2 (36.4-46.3) fL RDW Coeff of [place] 13.4 (11.5-14.5) % Plt Count 251 (130-400) K/uL MPV 10.0 (7.4-10.4) fL Immature Gran % (Auto) 0.1 % Neut % (Auto) 56.6 % Lymph % (Auto) 34.7 % [place] % (Auto) 5.9 % Eos % (Auto) 2.3 % Baso % (Auto) 0.4 % Immature Gran # (Auto) 0.01 (0.00-0.02) K/uL Neut # (Auto) 4.00 (1.4-6.5) K/uL Lymph # (Auto) 2.45 (1.2-3.4) K/uL [place] # (Auto) 0.42 (0.11-0.59) K/uL Eos # (Auto) 0.16 (0-0.5) K/uL Baso # (Auto) 0.03 (0-0.2) K/uL Sodium 138 (136-145) mmol/L Potassium 4.0 (3.5-5.1) mmol/L Chloride 102 (98-107) mmol/L Carbon Dioxide 29 (21-32) mmol/L Anion Gap 7.0 (3-11) BUN 18 (7-18) mg/dl Creatinine 0.81 (0.6-1.2) mg/dl Est Cr Clr Drug Dosing 59.0 ml/min Est GFR ( Amer) 84.7 Est GFR (Non-Af Amer) 73.1 BUN/Creatinine Ratio 22.2 H (10-20) Glucose 135 H (70-99) mg/dl Calcium 9.2 (8.5-10.1) mg/dl Total Bilirubin 0.5 (0.2-1) mg/dl AST 18 (15-37) U/L ALT 32 (12-78) U/L Alkaline Phosphatase 65 (45-117) U/L POC Troponin I < 0.03 (0-0.045) ng/ml Total Protein 7.5 (6.4-8.2) gm/dl Albumin 4.2 (3.4-5.0) gm/dl Globulin 3.3 (2.5-4.0) gm/dl Albumin/Globulin Ratio 1.3 (0.9-2) Lipase 175 (73-393) U/L Imaging Data Radiologist's Impression: Radiology results as stated below per my review and the radiologist's interpretation: XR chest 1V portable HISTORY: 73 years-old Female Chest Pain acute atypical chest pain COMPARISON: Chest radiograph 10/20/2016 TECHNIQUE: Portable AP view of the chest FINDINGS: Cardiomediastinal and hilar silhouettes are unchanged. No pneumothorax, pleural effusion, focal airspace consolidation or overt pulmonary edema. Bones of the chest appear grossly intact. IMPRESSION: No acute process. The above report was generated using voice recognition software. It may contain grammatical, syntax or spelling errors. Electronically signed by: Agustin Blevins M.D. 04/12/2019 10:47 AM Dictated: 04/12/19 1046 Transcribed: 04/12/19 1046 ECG Data Attestation: I personally reviewed and interpreted this ECG as follows: Indication: chest pain Rate (beats per minute): 77 Rhythm: normal sinus Findings: no PVC and no ST elevation Blood Pressure Blood Pressure Findings: Elevated blood pressure Blood Pressure Disposition: Referred to patients primary care provider MDM Narrative I did evaluate the patient as noted above. The patient is presenting with left- sided chest heaviness with shortness of breath since yesterday morning. It has been intermittent. She rates it a 2 out of 10 in severity. She does have a family history of early CAD. Her brother in his 30s. Her last stress test was 10 years ago. IV access was established. The patient was placed on a continuous threat monitoring analyst. I did order and personally review the patient's 12-l ead EKG as described above. There is no evidence of acute ischemia. I did order and personally reviewed the images of the patient's chest x-ray as described above. This is unremarkable. I did order and review the patient's blood work as noted in the electronic medical record. Troponin is negative. CBC and electrolytes are unremarkable. I did treat the patient with nitroglycerin paste. On reassessment her chest pain is completely resolved. She was given an aspirin. I did discuss the test results with her. I did recommend hospitalization for repeat cardiac biomarkers and further evaluations. I did discuss case with the hospitalist and corrections caseworker. Impression & Plan Left-sided chest pain Discharge Plan Visit Data *Final* Discharge Date/Time: 04/12/19 13:03 Chief Complaint: Chest Pain Stated Complaint: SOB,ANXIETY, ED Provider: Mode Shelby Discharge Problem: Left-sided chest pain Patient Disposition: Admitted As Inpatient Discharge Instructions Interventions: ED Discharge Assessment Last Done: 04/12/19 13:03 The scribe's documentation has been prepared under my direction and personally reviewed by me in its entirety. I confirm that the note above accurately reflects all work, treatment, procedures, and medical decision making performed by me.
[2019-04-12] MEDS: INSULIN ASPART 100 UNITS/ML 3 ML PEN SC SCH ×2 (17:09→21:26)
[2019-04-12] MEDS ORDERED: LOSARTAN POTASSIUM 50 MG TAB PO SCH (21:00)
[2019-04-12] MEDS ORDERED: ATORVASTATIN 40 MG TAB PO SCH (21:00)
[2019-04-12] MEDS ORDERED: ASPIRIN 81 MG ECTAB PO SCH (21:00)
[2019-04-12] MEDS ORDERED: Nursing to Pharmacy Communication ONE (21:37)
[2019-04-12] MEDS ORDERED: SODIUM CHLORIDE 0.9% 1000ML 1,000 ML IV ONE (22:00)
[2019-04-13 04:52] LABS: Hemoglobin 12.8 g/dL (12.0-16.0); Mean Corpuscular Hgb Conc 33.7 g/dL (32-36); Mean Corpuscular Volume 88.8 fL (80-100); Mean Platelet Volume 10.2 fL (7.4-10.4); Platelet Count 240 K/uL (130-400); RDW Coefficient of Variation 13.6 % (11.5-14.5); RDW Standard Deviation 43.9 fL (36.4-46.3); Red Blood Count 4.28 M/uL (4.2-5.4); White Blood Count 8.66 K/uL (4.8-10.8)
[2019-04-13 05:17] LABS: BUN Creatinine Ratio 22.9 (10-20); Blood Urea Nitrogen 18 mg/dl (7-18); Calcium 9.2 mg/dl (8.5-10.1); Carbon Dioxide 29 mmol/L (21-32); Chloride 104 mmol/L (98-107); Chol HDL Ratio 3; Cholesterol 192 mg/dl (0-200); Creatinine Clr Calc Pharmacy 61.8 ml/min; Est GFR (Non-African American) 77.7; Glucose 110 mg/dl (70-99); HDL Cholesterol 70 mg/dl; LDL Cholesterol Calculated 94 mg/dl; Magnesium 2.2 mg/dl (1.8-2.4); Potassium 3.1 mmol/L (3.5-5.1); Sodium 140 mmol/L (136-145); Triglycerides 139 mg/dl (0-150); Troponin I < 0.015 ng/ml (0-0.045); VLDL Cholesterol 28 mg/dl
[2019-04-13] MEDS ORDERED: POTASSIUM CHLORIDE 20 MEQ TABCR PO STA (05:47)
[2019-04-13] MEDS: INSULIN ASPART 100 UNITS/ML 3 ML PEN SC SCH ×2 (06:19→11:59)
[2019-04-13] MEDS ORDERED: POTASSIUM CHLORIDE 20 MEQ TABCR PO ONE (07:35)
[2019-04-13 07:39] LABS: Estimated Average Glucose 169 mg/dl; Hemoglobin A1C 7.5 % (4.5-5.6)
[2019-04-13] MEDS ORDERED: hydroCHLOROthiazide 25 MG TAB PO SCH (09:00)
[2019-04-13] MEDS ORDERED: AMLODIPINE BESYLATE 5 MG TAB PO SCH (09:00)
--- NOTE | 2019-04-13 11:07 | Hospitalist Progress Note ---
Date of Service April 13, 2019 Assessment & Plan (1) Left-sided chest pain: Risk factors: H/O HTN, HLP, Formaer Tobacco use disorder, DM II, +Family history Troponin x3 Negative EKG showed no acute sings of Ischemia CXR on admission showed no acute finding ECHO showed no wall motion abnormality with EF btw 55 to 60% Exercise stress echo negative for ischemia and no chest pain reproduced during exercise Continue Aspirin, statin No arrhythmia on tele monitor Chest pain resolved DM Type II: Poorly controlled Resume oral diabetic meds on discharge Last A1c: 7.5 on January 11, 2019 ISS, Accu checks, Diabetic diet HTN: BP elevated during exercise stress test BP improved now Continue outpatient therapy HLP: Chol 192, LDL 94, HDL 70 Continue Statins Stable Hypokalemia K 3.1 K replaced Monitor BMP Snore/Apnea episodes Will need to get eval for sleep apnea outpatient. DVT Px: SCDs Code Status: Full Code Disposition: Discharge home today Subjective Pt was seen and examined Sitting in the chair with no distress eating breakfast Pt said that she feels fine She said that she did not have any chest pain during the stress test said that patient snores and has episode of apnea during sleep Pt said that she feels fine Denies any chest pain, palpitation, dizziness and SOB Physical Exam Physical Exam: General- No acute distress Head- atraumatic Eyes- PERRL, EOMI, ENT- oropharynx clear Neck- supple, no JVD Lungs- clear to auscultation Heart- regular rhythm; no murmur Abdomen- normal bowel sounds, soft, nontender Extremities- no calf tenderness Neuro- alert, oriented x 3; PERRL, EOMI; no facial palsy; no dysarthria Skin- warm & dry Results & Data Vital Signs (Past 12 Hours) Vital Signs Temp Pulse Resp BP BP Pulse Ox 04/13/19 09:42 36.5 C 85 16 124/67 98 04/13/19 04:00 36.6 C 63 18 125/65 96 04/12/19 23:57 36.6 C 63 16 124/61 96
--- NOTE | 2019-04-16 08:27 | Discharge Summary ---
Date of Service April 13, 2019 Admission HPI Per Admitting Provider Patient is a 73-year-old female with history of diabetes mellitus, hypertension, dyslipidemia, former smoker and other problems presents with history of chest pain associated with shortness of breath and dizziness. She states " I feel different". she noticed having retrosternal chest pain, 2/10 intensity, describes as heaviness when she was mopping the floor yesterday. Chest pain lasted for about 30 minutes, is nonradiating, associated with shortness of breath and dizziness. She states the chest pain improves with rest and denies any worsening of chest pain with exertion. She admits to drinking 5 glasses of wine yesterday night which she states is not usual for her. 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 Nitroglycerin given in ED slightly decreased the chest pain, currently has 1/10 intensity. She states having last stress test 10 years ago in [place] which was negative. She reports that her brother of heart attack at the age of 39 years. She has intermittent GERD and uses Rolaids which improves her symptoms but currently states the chest heaviness is not related to acid reflux. Denies any history of palpitations, orthopnea, PND, pedal edema, diaphoresis, cough, wheezing, fever, chills, headache, weakness, nausea, vomiting, abdominal pain, diarrhea, dysuria, recent change in medications. Admission Exam Per Admitting Provider Vitals signs as noted above General Appearance:Moderately built and nourished, no apparent distress Head: normocephalic, Atraumatic Eyes: normal inspection, EOMI Neck: supple, Trachea midline Respiratory/Chest: Normal breath sounds, CTAe Cardiovascular: S1, S2, No murmur Abdomen/GI:Soft, Non tender, Bowel sounds present Extremities/Musculoskelatal:normal inspection, no edema Neurologic/Psych:AAOX3, grossly no focal neurological deficits Skin: normal color, warm Principal Diagnosis Chest pain Dyslipidemia Diabetes Hypertension Hypokalemia Discharge Exam General- No acute distress Head- atraumatic Eyes- PERRL, EOMI, ENT- oropharynx clear Neck- supple, no JVD Lungs- clear to auscultation Heart- regular rhythm; no murmur Abdomen- normal bowel sounds, soft, nontender Extremities- no calf tenderness Neuro- alert, oriented x 3; PERRL, EOMI; no facial palsy; no dysarthria Skin- warm & dry Discharge Data Allergies Allergy/AdvReac Type Severity Reaction Status Date / Time Iodinated Contrast- Oral and Allergy Severe TIGHT Verified 04/12/19 10:13 IV Dye THROAT, FELT HOT Penicillins Allergy Severe RASH Verified 04/12/19 10:13 Consultations 04/12/19 11:42 ED Decision to Admit Stat Ordered Studies XR chest 1V portable HISTORY: 73 years-old Female Chest Pain acute atypical chest pain COMPARISON: Chest radiograph 10/20/2016 TECHNIQUE: Portable AP view of the chest FINDINGS: Cardiomediastinal and hilar silhouettes are unchanged. No pneumothorax, pleural effusion, focal airspace consolidation or overt pulmonary edema. Bones of the chest appear grossly intact. IMPRESSION: No acute process. The above report was generated using voice recognition software. It may contain grammatical, syntax or spelling errors. Electronically signed by: Agustin Blevins M.D. 04/12/2019 10:47 AM Dictated: 04/12/19 1046 Transcribed: 04/12/19 1046 Hospital Course (1) Left-sided chest pain: Risk factors: H/O HTN, HLP, [place] Tobacco use disorder, DM II, +Family history Troponin x3 Negative EKG showed no acute sings of Ischemia CXR on admission showed no acute finding ECHO showed no wall motion abnormality with EF btw 55 to 60% Exercise stress echo negative for ischemia and no chest pain reproduced during exercise Continue Aspirin, statin No arrhythmia on tele monitor Chest pain resolved DM Type II: Poorly controlled Resume oral diabetic meds on discharge Last A1c: 7.5 on January 11, 2019 ISS, Accu checks, Diabetic diet HTN: BP elevated during exercise stress test BP improved now Continue outpatient therapy HLP: Chol 192, LDL 94, HDL 70 Continue Statins Stable Hypokalemia K 3.1 K replaced Monitor BMP Snore/Apnea episodes Will need to get eval for sleep apnea outpatient. DVT Px: SCDs Code Status: Full Code Disposition: Discharge home today Total Time Total Time Spent Total Time Spent (In Minutes): 35 minutes Total Time Includes: Examination of the Patient, Discharge Planning, Medication Reconciliation, Communication With Other Providers and Other Discharge Plan Discharge Items Patient Disposition: Home - Self-Care Reason For Visit: chest pain Discharge Diagnosis: Chest pain Dyslipidemia Diabetes Hypertension Hypokalemia Discharge Goals: Decrease discomfort, Diagnostic testing, Improve disease control, Improve function and Increase independence Activity: Resume your previous activity Activity Comment: As tolerated Non-emergency contact: Primary Care Provider Call non-emergency contact if: you have any medication questions and your symptoms worsen Follow-up/Referrals: Piyush Lee MD [Primary Care Provider] - Diet: Carb Consistent or DM2 and Heart Healthy Addtl Provider Instructions: Follow up with your primary care provider Dr. Lee on 04/20 @ 1:55 PM Increase potassium intake in diet Seek medical attention if chest pain reoccurs or worsening Follow a healthy diabetes diet and limited concentrated sweet intake Prescriptions: Continued atorvastatin 80 mg tablet 80 mg PO HS RF: 0 amlodipine 2.5 mg tablet 2.5 mg PO QAM RF: 0 aspirin 81 mg Tablet,Delayed Release (Dr/Ec) 81 mg PO HS RF: 0 hydrochlorothiazide 25 mg tablet 25 mg PO QAM RF: 0 metformin 500 mg tablet extended release 24 hr 500 mg PO QAM RF: 0 Calcium 600 + D(3) 600 mg calcium- 200 unit Capsule 1 cap PO HS RF: 0 Januvia 100 mg tablet 100 mg PO HS RF: 0 PreserVision AREDS [id number] Capsule 1 cap PO HS RF: 0 Glucosamine Chondroitin 550-30-1 mg Capsule 1 cap PO HS RF: 0 losartan 100 mg tablet 100 mg PO HS RF: 0 Stand-Alone Forms: Call Back Authorization, [facility]/Other Patient Handouts: Angina, Heart Attack Sx, Angina Heart Attack Recognize, Heart Risk Discharge Orders: Discharge Order (Routine); Ordered 04/13/19 Ordered By: Jena Olsen Admission Data Admit Date/Time: 04/12/19 12:13 Attending Provider: Jena Olsen Admit Provider: Karel Ayoub Primary Care Provider: Piyush Lee Other Providers: Karel Ayoub Service: Telemetry Other Interventions: Discharge Summary Assessment (RN) Last Done: 04/13/19 12:07 DC Date/Time DO NOT enter until pt leaves facility: 04/13/19 12:24
== END 2019-04-13 12:24 | disposition home or self-care (01) ==
LOC: ED 09:41 → 2E 09:41